=== PATIENT | female | born 1975 | race African-American/Black ===

== ENCOUNTER 2018-04-23 14:13 | Emergency (ER) | payer MEDICARE ==
[~2018-04-23] VITALS: Ht 165.1 cm; Wt 63.0 kg
[2018-04-23 14:58] LABS: BASOPHILS # (AUTO) 0.1 (0.0-0.1); EOSINOPHILS # (AUTO) 0.2 (0.0-0.4); EOSINOPHILS % 3.6 % (0.0-6.0); HEMATOCRIT 33.5 % (34.2-44.1); HEMOGLOBIN 10.8 g/dL (12.0-16.0); LYMPHOCYTES # (AUTO) 1.9 (1.0-3.2); LYMPHOCYTES % 32.5 % (18.0-39.1); MEAN CORPUSCULAR HEMOGLOBIN 31.3 pg (28-32); MEAN CORPUSCULAR HGB CONC 32.2 g/dL (31-35); MEAN CORPUSCULAR VOLUME 97.1 fL (81-99); MONOCYTES # (AUTO) 0.8 (0.2-0.8); NEUTROPHILS # (AUTO) 2.9 (2.1-6.9); NEUTROPHILS % 49.7 % (38.7-80.0); PLATELET COUNT 325 x10e3/uL (140-360); RED BLOOD COUNT 3.45 x10e6/uL (3.6-5.1); RED CELL DISTRIBUTION WIDTH 12.6 % (11.7-14.4)
[2018-04-23 15:18] LABS: ALANINE AMINOTRANSFERASE 9 IU/L (0-55); ALBUMIN 3.6 g/dL (3.5-5.0); ALKALINE PHOSPHATASE 52 IU/L (40-150); ANION GAP 13.5 mmol/L (8-16); BLOOD UREA NITROGEN 10 mg/dL (7-26); BUN/CREATININE RATIO 13 (6-25); CALCIUM 9.4 mg/dL (8.4-10.2); CARBON DIOXIDE 26 mmol/L (22-29); CHLORIDE 101 mmol/L (98-107); CREATINE KINASE 39 IU/L (29-168); CREATININE, SERUM 0.76 mg/dL (0.57-1.11); EST GLOMERULAR FILTRATION RATE > 60 ML/MIN (60-); GLUCOSE 82 mg/dL (74-118); POTASSIUM 3.5 mmol/L (3.5-5.1); SODIUM 137 mmol/L (136-145)
[2018-04-23 15:36] LABS: AMPHETAMINES SCREEN,URINE POSITIVE (NEGATIVE); PHENCYCLIDINE SCREEN,URINE NEGATIVE (NEGATIVE)
[2018-04-23 15:37] LABS: BENZODIAZEPINES SCREEN,URINE POSITIVE (NEGATIVE)
--- NOTE | 2018-04-23 15:40 | Diagnostic Imaging Report ---
Examination: CT head without contrast Clinical Indication: Syncope. Technique: Transaxial noncontrast images from the skull base through the vertex were obtained. Sagittal and coronal reformatted images were done. Dose modulation, iterative reconstruction, and/or weight based adjustment of the mA/kV was utilized to reduce the radiation dose to as low as reasonably achievable. Comparison: None. Findings: Scalp: No abnormalities. Bones: Intact. No fractures. No blastic or lytic lesions. Brain sulci: Appropriate for patient's age. Ventricles: Normal in size and configuration. No hydrocephalus. Extra-axial space: No abnormalities. Parenchyma: No abnormal densities. No masses, hemorrhage, or acute or chronic cortical based vascular insults. Suprasellar region: No abnormalities. Craniocervical junction: The foramen magnum is patent. No Chiari one malformation. Impression: No intracranial abnormality. Signed by: Dr. Skye Rudd M.D. on 04/23/2018 3:36 PM
--- NOTE | 2018-04-23 15:50 | Diagnostic Imaging Report ---
EXAMINATION: CHEST SINGLE (PORTABLE) INDICATION: \S\chest pain COMPARISON: None FINDINGS: AP view TUBES and LINES: None. LUNGS: Lungs are well inflated. Lungs are clear. There is no evidence of pneumonia or pulmonary edema. PLEURA: No pleural effusion or pneumothorax. HEART AND MEDIASTINUM: The cardiomediastinal silhouette is unremarkable.. BONES AND SOFT TISSUES: No acute osseous lesion. Soft tissues are unremarkable. UPPER ABDOMEN: No free air under the diaphragm. IMPRESSION: No acute thoracic abnormality. Signed by: Dr. Ella Rasheed M.D. on 04/23/2018 3:47 PM
[2018-04-23 15:53] LABS: COLOR,URINE YELLOW (YELLOW)
[2018-04-23 15:54] LABS: CLARITY,URINE CLOUDY (CLEAR); LEUKOCYTE ESTERASE ,URINE NEGATIVE (NEGATIVE); NITRITE,URINE NEGATIVE (NEGATIVE); PROTEIN,URINE DIPSTICK TRACE (NEGATIVE)
[2018-04-23 15:55] LABS: BILIRUBIN,URINE 1+ (NEGATIVE); KETONES,URINE 1+ (NEGATIVE); URINE UROBILINOGEN 1 mg/dL (0.2 - 1)
[2018-04-23 15:56] LABS: BACTERIA,URINE RARE /HPF; EPITHELIAL CELLS,URINE FEW /LPF; MUCUS,URINE MODERATE (RARE); RBC,URINE 0-5 /HPF (0-5); WBC,URINE (MAN) 0-5 /HPF (0-5)
[2018-04-23 15:57] LABS: PREGNANCY TEST, URINE NEGATIVE (NEGATIVE)
[2018-04-23] MEDS ORDERED: SODIUM CHLORIDE 0.9% 1000ML 1,000 ML ONE (17:53)
[2018-04-23] MEDS ORDERED: SODIUM CHLORIDE 0.9% 1000ML 1,000 ML IV SCH (18:00)
[2018-04-23 18:40] VITALS: BP 144/95
== END 2018-04-23 18:59 | disposition home or self-care (01) ==
LOC: ER 14:13
DX: R55 Syncope and collapse (principal); F11.10 Opioid abuse, uncomplicated; F13.10 Sedative, hypnotic or anxiolytic abuse, uncomplicated; F15.10 Other stimulant abuse, uncomplicated; F41.9 Anxiety disorder, unspecified; F32.9 Major depressive disorder, single episode, unspecified; M79.7 Fibromyalgia; M32.9 Systemic lupus erythematosus, unspecified
CPT/HCPCS: 36415; 70450; 71045; 80053; 80307; 81001; 81025; 82550; 82553; 83880; 84484; 85025; 93005; 99284; J7030

== ENCOUNTER 2019-10-10 21:20 | Emergency (ER) | payer MEDICARE, OTHER ==
[~2019-10-10] VITALS: Ht 165.1 cm; Wt 62.6 kg
--- OUTSIDE RECORDS SUMMARY | 2019-10-10 21:23 | XMS REPORT ---
Author Author 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 Allergies, Adverse Reactions, Alerts This patient has no known allergies or adverse reactions. Medications This patient has no known medications. Encounters Start Date/Time End Date/Time Encounter Type Admission Type Attending [facility] Facility Care Department Encounter ID 2019-09-05 01:55:00 2019-09-05 01:55:00 Emergency E [id number] Results Test Description Test Time Test Comments Text Results Atomic Results Result Comments CHEST SINGLE (PORTABLE) 2018-04-23 15:47:00 [place] [id number] Patient Name: DEANDRA BANUELOS MR #: [id number] : 1975 Age/Sex: 42/F Req #: [id number] Adm Physician: Ordered by: YOLA SILVA MD Report #: [id number] Location: ER Room/Bed: Procedure: [id number] DX/CHEST SINGLE (PORTABLE) Exam Date: Exam Time: REPORT STATUS: Signed EXAMINATION: CHEST SINGLE (PORTABLE) INDICATION: COMPARISON: None FINDINGS: AP view TUBES and LINES: None. LUNGS: Lungs are well inflated. Lungs are clear. There is no evidence of pneumonia or pulmonary edema. PLEURA: No pleural effusion or pneumothorax. HEART AND MEDIASTINUM: The cardiomediastinal silhouette is unremarkable.. BONES AND SOFT TISSUES: No acute osseous lesion. Soft tissues are unremarkable. UPPER ABDOMEN: No free air under the diaphragm. IMPRESSION: No acute thoracic abnormality. Signed by: Dr. Vidal Shepard M.D. on 04/23/2018 3:47 PM Dictated By: VIDAL SHEPARD MD 46 Transcribed By: DOMONIQUE on 04/23/181546 COPY TO: YOLA SILVA MD CT BRAIN WO 2018-04-23 15:35:00 [place] [address] Patient Name: DEANDRA BANUELOS MR #: [id number] : 1975 Age/Sex: 42/F Req #: [id number] Adm Physician: Ordered by: YOLA SILVA MD Report #: [id number] Location: ER Room/Bed: Procedure: [id number] CT/CT BRAIN WO Exam Date: Exam Time: REPORT STATUS: Signed Examination: CT head without contrast Clinical Indication: Syncope. Technique: Transaxial noncontrast images from the skull base through the vertex were obtained. Sagittal and coronal reformatted images were done. Dose modulation, iterative reconstruction, and/or weight based adjustment of the mA/kV was utilized to reduce the radiation dose to as low as reasonably achievable. Comparison: None. Findings: Scalp: No abnormalities. Bones: Intact. No fractures. No blastic or lytic lesions. Brain sulci: Appropriate for patient's age. Ventricles: Normal in size and configuration. No hydrocephalus. Extra-axial space: No abnormalities. Parenchyma: No abnormal densities. No masses, hemorrhage, or acute or chronic cortical based vascular insults. Suprasellar region: No abnormalities. Craniocerv ical junction: The foramen magnum is patent. No Chiari one malformation. Impression: No intracranial abnormality. Signed by: Dr. Skye Rudd M.D. on 04/23/2018 3:36 PM Dictated By: SKYE NEWTON MD 1536 Transcribed By: DOMONIQUE on 04/23/18 1536 COPY TO: YOLA SILVA MD DIRECT INFLUENZA A AND B DETECT 2017-06-01 14:20:00 Direct Exam (test code=DE1) PRESUMPTIVE NEGATIVE FOR THE PRESENCE OF INFLUENZA ANTIGEN XR CHEST 2 [id number] 14:02:47PA and lateral chest, 2 views.Location code: [id number] HISTORY: Cough, feverCOMPARISON: NoneCOMMENTS: The lungs are clear and well inflated. The costophrenic angles aresharp. The cardiomediastinal silhouette is unremarkable. The bones are intact.IMPRESSION: No acute abnormalityB-TYPE NATRIURETIC FACTOR (BNP)2016-11-03 06:18:00* Test Item Value Reference Range Comments B-TYPE NATRIURETIC PEPTIDE (BEAKER) (test ukcu=125) < pg/mL 0-100 COMPREHENSIVE METABOLIC [id number] 06:15:00* Test Item Value Reference Range Comments TOTAL PROTEIN (BEAKER) (test cgea=525) 7.5 gm/dL 6.0-8.5 ALBUMIN (BEAKER) (test godj=2563) 3.9 g/dL 3.5-5.0 ALKALINE PHOSPHATASE (BEAKER) (test yrxo=503) 63 U/L 30-115 BILIRUBIN TOTAL (BEAKER) (test kkkr=047) 0.5 mg/dL 0.1-1.2 SODIUM (BEAKER) (test xkdo=168) 139 meq/L 135-148 POTASSIUM (BEAKER) (test ahxx=177) 3.5 meq/L 3.6-5.5 CHLORIDE (BEAKER) (test tqnu=124) 102 meq/L 98-106 CO2 (BEAKER) (test isbg=414) 30 meq/L 24-32 BLOOD UREA NITROGEN (BEAKER) (test xthx=591) 9 mg/dL 10-26 CREATININE (BEAKER) (test ikas=372) 0.65 mg/dL 0.50-1.20 GLUCOSE RANDOM (BEAKER) (test dywg=933) 116 mg/dL 70-110 CALCIUM (BEAKER) (test fawc=120) 8.7 mg/dL 8.5-10.5 AST (SGOT) (BEAKER) (test rhid=215) 37 U/L 5-40 ALT (SGPT) (BEAKER) (test aydl=632) 21 U/L 5-50 EGFR (BEAKER) (test zvyc=7384) 122 mL/min/1.73 sq m ESTIMATED GFR IS NOT ACCURATE CREATININE CLEARANCE IN PREDICTING GLOMERULAR FILTRATION RATE. ESTIMATED GFR IS NOT APPLICABLE FOR DIALYSIS PATIENTS. [id number] 06:15:00* Test Item Value Reference Range Comments LIPASE (BEAKER) (test nefa=674) 36 U/L 40-240 URINALYSIS W/ REFLEX URINE [id number] 06:13:00* Test Item Value Reference Range Comments COLOR (BEAKER) (test vqaj=744) Yellow CLARITY (BEAKER) (test uuez=027) Clear SPECIFIC GRAVITY UA (BEAKER) (test rfiu=838) 1.020 1.001-1.035 PH UA (BEAKER) (test znuw=924) 5.5 5.0-8.0 PROTEIN UA (BEAKER) (test axpc=455) Negative Negative GLUCOSE UA (BEAKER) (test ltrz=119) Negative Negative KETONES UA (BEAKER) (test vccf=732) Negative Negative BILIRUBIN UA (BEAKER) (test xolt=555) Negative Negative BLOOD UA (BEAKER) (test blif=749) Negative Negative NITRITE UA (BEAKER) (test lyuf=501) Negative Negative LEUKOCYTE ESTERASE UA (BEAKER) (test cfwj=346) Negative Negative UROBILINOGEN UA (BEAKER) (test rdgb=304) 0.2 mg/dL 0.2-1.0 BACTERIA (BEAKER) (test oqmc=728) Rare MUCUS (BEAKER) (test klmj=0407) Few RBC UA-MANUAL (BEAKER) (test jzci=0745) None Seen /HPF WBC UA-MANUAL (BEAKER) (test hxiu=2665) <5 /HPF SOURCE(BEAKER) (test cceb=8202) SCREEN, [id number] 06:06:00* Test Item Value Reference Range Comments TEST URINE (BEAKER) (test ioie=824) Negative CBC W/PLT COUNT & AUTO [id number] 06:02:00* Test Item Value Reference Range Comments WHITE BLOOD CELL COUNT (BEAKER) (test oekh=293) 6.3 10e3/ L 4.0-10.0 RED BLOOD CELL COUNT (BEAKER) (test rhbo=763) 3.82 10e6/ L 4.00-5.00 HEMOGLOBIN (BEAKER) (test qzdw=217) 11.7 g/dL 12.0-15.0 HEMATOCRIT (BEAKER) (test ldlo=768) 36.5 % 36.0-45.0 MEAN CORPUSCULAR VOLUME (BEAKER) (test xzyl=379) 95.5 fL 82.0-99.0 MEAN CORPUSCULAR HEMOGLOBIN (BEAKER) (test ajhy=245) 30.7 pg 27.0-33.0 MEAN CORPUSCULAR HEMOGLOBIN CONC (BEAKER) (test qiew=529) 32.1 g/dL 32.0-36.0 RED CELL DISTRIBUTION WIDTH (BEAKER) (test fngq=702) 12.1 % 10.3-14.2 PLATELET COUNT (BEAKER) (test vreo=121) 249 10e3/ L 150-430 MEAN PLATELET VOLUME (BEAKER) (test lljm=259) 7.2 fL 6.5-10.5 NEUTROPHILS RELATIVE PERCENT (BEAKER) (test ymwt=451) 48 % LYMPHOCYTES RELATIVE PERCENT (BEAKER) (test enbg=500) 38 % MONOCYTES RELATIVE PERCENT (BEAKER) (test duay=231) 9 % EOSINOPHILS RELATIVE PERCENT (BEAKER) (test yqvn=068) 4 % BASOPHILS RELATIVE PERCENT (BEAKER) (test rdjq=938) 0 % NEUTROPHILS ABSOLUTE COUNT (BEAKER) (test crtb=832) 3.02 10e3/ L 1.80-8.00 LYMPHOCYTES ABSOLUTE COUNT (BEAKER) (test alml=217) 2.37 10e3/ L 1.48-4.50 MONOCYTES ABSOLUTE COUNT (BEAKER) (test glho=409) 0.58 10e3/ L 0.00-1.30 EOSINOPHILS ABSOLUTE COUNT (BEAKER) (test kvfn=831) 0.26 10e3/ L 0.00-0.50 BASOPHILS ABSOLUTE COUNT (BEAKER) (test lhqa=251) 0.03 10e3/ L 0.00-0.20
--- NOTE | 2019-10-10 22:47 | Diagnostic Imaging Report ---
Foot complete CPT code: 95777 Indication: Pain ^fall Technique: A.P., oblique and lateral views of the left foot obtained. Comparison: None Findings: The area of pain is not indicated or marked. Calcaneus is intact. The midfoot is intact. No evidence of displaced fracture or dislocation involving any of the digits. No radiopaque foreign bodies in the soft tissues. IMPRESSION: No traumatic pathology. Signed by: Dr. Ronaldo Donahue MD on 10/10/2019 10:44 PM
--- NOTE | 2019-10-10 22:50 | Diagnostic Imaging Report ---
Tibia fibula left CPT code: 92928 Indication: Trip and fall Technique: AP and lateral views of the left tibia and fibula obtained. Comparison: None Findings: No fracture, dislocation, or focal osseous lesion. No abnormalities of the visualized portions of the knee or ankle. No radio-opaque foreign bodies in the soft tissues. IMPRESSION: No acute traumatic pathology. Signed by: Dr. Ronaldo Donahue MD on 10/10/2019 10:47 PM
--- NOTE | 2019-10-10 23:01 | NUR ---
DR ESCALERA STATED PT COULD TAKE HER OWN MEDICATIONS
--- NOTE | 2019-10-10 23:25 | NUR ---
ICE PACK X 2 GIVEN TO PATIENT.
== END 2019-10-10 23:25 | disposition home or self-care (01) ==
LOC: FSED 21:20
DX: S93.432A Sprain of tibiofibular ligament of left ankle, initial encounter (principal); S93.622A Sprain of tarsometatarsal ligament of left foot, initial encounter; X50.1XXA Overexertion from prolonged static or awkward postures, initial encounter; Y92.008 Other place in unspecified non-institutional (private) residence as the place of occurrence of the external cause
CPT/HCPCS: 99283